=== PATIENT | male | born 1985 | race Two or more races ===

== ENCOUNTER 2018-03-11 19:40 | Emergency (ER) | payer MEDICAID, OTHER ==
[~2018-03-11] VITALS: Ht 157.5 cm; Wt 63.0 kg
[2018-03-11] MEDS ORDERED: ALBUTEROL (0.083%) 2.5MG/3ML NEB HHN ONE (20:00)
[2018-03-11] MEDS ORDERED: PREDNISONE 20MG TABLET PO ONE (20:00)
[2018-03-11 21:16] VITALS: BP 117/69
== END 2018-03-11 21:25 | disposition home or self-care (01) ==
LOC: ER 19:40
DX: J45.901 Unspecified asthma with (acute) exacerbation (principal)
CPT/HCPCS: 71045; 99283; J7512; J7611

== ENCOUNTER 2019-07-01 14:24 | Emergency (ER) | payer MEDICAID, OTHER ==
[~2019-07-01] VITALS: Ht 172.7 cm; Wt 68.0 kg
[2019-07-01] MEDS ORDERED: PREDNISONE 20MG TABLET PO ONE (16:45)
[2019-07-01] MEDS ORDERED: ALBUTEROL (0.083%) 2.5MG/3ML NEB HHN ONE (16:45)
[2019-07-01 17:29] VITALS: BP 131/80
== END 2019-07-01 17:30 | disposition home or self-care (01) ==
LOC: ER 14:24
DX: J45.901 Unspecified asthma with (acute) exacerbation (principal)
CPT/HCPCS: 94640; 99283; J7512; J7611; Z7610

== ENCOUNTER 2019-08-17 16:23 | Emergency (ER) | payer MEDICAID, OTHER ==
[~2019-08-17] VITALS: Ht 167.6 cm; Wt 68.0 kg
[2019-08-17] MEDS ORDERED: IPRATROPIUM/ALBUTEROL 0.5-3(2.5)MG/3ML NEB HHN ONE (18:00)
[2019-08-17 18:42] VITALS: BP 105/65
== END 2019-08-17 18:41 | disposition home or self-care (01) ==
LOC: ER 16:23
DX: J45.901 Unspecified asthma with (acute) exacerbation (principal); Z76.0 Encounter for issue of repeat prescription
CPT/HCPCS: 94640; 99283; J7620; Z7610

== ENCOUNTER 2019-09-02 15:15 | Emergency (ER) | payer MEDICAID ==
[~2019-09-02] VITALS: Ht 167.6 cm; Wt 78.0 kg
[2019-09-02] MEDS ORDERED: PREDNISONE 20MG TABLET PO STA (17:02)
[2019-09-02] MEDS ORDERED: ALBUTEROL (0.083%) 2.5MG/3ML NEB HHN STA (17:02)
[2019-09-02] MEDS ORDERED: IPRATROPIUM BROMIDE (0.02%) 0.5MG/2.5ML NEB HHN STA (17:02)
[2019-09-02 20:14] VITALS: BP 126/69
== END 2019-09-02 20:18 | disposition home or self-care (01) ==
LOC: ER 15:15
DX: J45.901 Unspecified asthma with (acute) exacerbation (principal)
CPT/HCPCS: 87804; 94640; 99285; J7512; J7610; Z7610

== ENCOUNTER 2019-10-09 02:09 | Emergency (ER) | payer MEDICAID ==
[~2019-10-09] VITALS: Ht 167.6 cm; Wt 77.0 kg
[2019-10-09] MEDS ORDERED: KETOROLAC 30MG/ML VIAL IV STA (03:17)
[2019-10-09] MEDS ORDERED: ONDANSETRON HCL 4MG/2ML INJ IV STA (03:17)
[2019-10-09] MEDS ORDERED: SODIUM CHLORIDE 0.9% 1,000 ML IV ONE (03:17)
[2019-10-09 03:43] LABS: EOSINOPHILS % 5.4 % (0.0-5.0); HEMATOCRIT. 46.2 % (42.0-52.0); HEMOGLOBIN. 15.5 g/dL (14.0-18.0); LYMPHOCYTES % 13.1 % (20.0-50.0); MEAN CORPUSCULAR HEMOGLOBIN 31.1 pg (28.0-32.0); MEAN CORPUSCULAR VOLUME 92.8 fL (80.0-94.0); MEAN PLATELET VOLUME 8.8 fl (7.4-10.4); MONOCYTES % 6.7 % (2.0-8.0); NEUTROPHILS % 73.8 % (40.0-76.0); PLATELET 326 x1000/uL (130-400); RED BLOOD CELL COUNT 4.98 mill/uL (4.7-6.1); RED CELL DISTRIBUTION WIDTH 12.8 % (11.6-14.6)
[2019-10-09 03:49] LABS: CHLORIDE 103 mEq/L (98-107)
[2019-10-09 06:12] VITALS: BP 97/53
[2019-10-09 06:29] LABS: CLARITY URINE CLEAR (CLEAR); COLOR URINE YELLOW (YELLOW); KETONES URINE NEGATIVE (NEGATIVE); LEUKOCYTE ESTERASE URINE NEGATIVE (NEGATIVE); NITRITE URINE NEGATIVE (NEGATIVE); OCCULT BLOOD URINE NEGATIVE (NEGATIVE); PROTEIN URINE NEGATIVE (NEGATIVE); SPECIFIC GRAVITY URINE 1.012 (1.005-1.030); UROBILINOGEN URINE 0.2 E.U./dL (0.2-1.0)
== END 2019-10-09 06:15 | disposition home or self-care (01) ==
LOC: ER 02:09
DX: K80.80 Other cholelithiasis without obstruction (principal); R74.0 Nonspecific elevation of levels of transaminase and lactic acid dehydrogenase [LDH]; J45.909 Unspecified asthma, uncomplicated; Z87.891 Personal history of nicotine dependence
CPT/HCPCS: 36415; 76705; 80053; 81003; 83690; 85025; 96361; 96374; 96375; 99284; J1885; J2405; J7030

== ENCOUNTER 2020-05-31 17:13 | Emergency (ER) | payer MEDICAID ==
[~2020-05-31] VITALS: Ht 167.6 cm; Wt 81.8 kg
[2020-05-31] MEDS ORDERED: ALBUTEROL (0.083%) 2.5MG/3ML NEB HHN ONE (17:45)
[2020-05-31] MEDS ORDERED: ALBUTEROL 6.7GM HFA INHALER ORI ONE (17:45)
[2020-05-31 17:47] VITALS: BP 129/79
== END 2020-05-31 18:19 | disposition home or self-care (01) ==
LOC: ER 17:13
DX: J45.901 Unspecified asthma with (acute) exacerbation (principal)
CPT/HCPCS: 87635; 99283